=== PATIENT | male | born 1955 | race African-American/Black ===

== ENCOUNTER 2020-11-19 05:43 | Inpatient (IN) | payer OTHER ==
[~2020-11-19] VITALS: Ht 172.7 cm; Wt 67.2 kg
[2020-11-19] MEDS ORDERED: NITROGLYCERIN OINT 1GM/INCH UDPKT TD ONE (06:45)
[2020-11-19] MEDS ORDERED: ALBUTEROL 6.7GM HFA INHALER ORI ONE (06:45)
[2020-11-19] MEDS ORDERED: ASPIRIN 81MG TABLET PO ONE (06:45)
[2020-11-19 07:12] LABS: EOSINOPHILS % 0.7 % (0.0-5.0); HEMATOCRIT. 41.7 % (42.0-52.0); HEMOGLOBIN. 14.1 g/dL (14.0-18.0); LYMPHOCYTES % 35.2 % (20.0-50.0); MEAN CORPUSCULAR HEMOGLOBIN 33.4 pg (28.0-32.0); MEAN CORPUSCULAR VOLUME 99.1 fL (80.0-94.0); MEAN PLATELET VOLUME 7.4 fl (7.4-10.4); NEUTROPHILS % 57.1 % (40.0-76.0); PLATELET 153 x1000/uL (130-400); RED BLOOD CELL COUNT 4.21 mill/uL (4.7-6.1); RED CELL DISTRIBUTION WIDTH 15.7 % (11.6-14.6)
[2020-11-19 07:20] LABS: CHLORIDE 108 mEq/L (98-107)
[2020-11-19 07:23] LABS: ETHANOL BLOOD < 10 mg/dL
[2020-11-19 07:29] LABS: D-DIMER 9.55 mg/L FEU (<0.50); INR 1.4; PROTHROMBIN TIME 14.6 sec (9.6-11.0)
[2020-11-19 13:31] LABS: *AMPHETAMINES SCREEN URINE PRESUMTIVE POSITIVE (NEGATIVE); *BARBITURATES SCREEN URINE NEGATIVE (NEGATIVE); *BENZODIAZEPINES SCREEN URINE NEGATIVE (NEGATIVE); *COCAINE SCREEN URINE NEGATIVE (NEGATIVE)
[2020-11-19 13:32] LABS: CANNABINOID URINE SCREEN NEGATIVE (NEGATIVE); METHADONE URINE SCREEN NEGATIVE (NEGATIVE); OPIATES URINE SCREEN NEGATIVE (NEGATIVE); PHENCYCLIDINE URINE SCREEN NEGATIVE (NEGATIVE)
[2020-11-19] MEDS ORDERED: IOHEXOL-350 100 ML BOTTLE ONE (14:57)
[2020-11-19 23:20] VITALS: BP 115/84
[2020-11-19] MEDS ORDERED: ACETAMINOPHEN 325MG TABLET PO PRN ×2 (23:30)
[2020-11-19] MEDS ORDERED: MAGNESIUM/ALUMINUM HYDROXIDE/SIMETHICONE 30ML UDC PO PRN (23:30)
[2020-11-19] MEDS ORDERED: DIPHENHYDRAMINE 50MG/ML VIAL IV PRN (23:30)
[2020-11-19] MEDS ORDERED: ZOLPIDEM TARTRATE 5MG TABLET PO PRN (23:30)
[2020-11-19] MEDS ORDERED: IPRATROPIUM/ALBUTEROL 0.5-3(2.5)MG/3ML NEB HHN PRN (23:30)
[2020-11-19] MEDS ORDERED: CLONIDINE 0.1MG TABLET PO PRN (23:30)
[2020-11-19] MEDS ORDERED: ONDANSETRON HCL 4MG/2ML INJ IV PRN (23:30)
[2020-11-20] VITALS: BP 115/84
[2020-11-20] MEDS: PANTOPRAZOLE 40MG DR TABLET PO SCH ×2 (00:32→07:06)
[2020-11-20] MEDS: ENOXAPARIN 40MG/0.4ML SYR SUBCUT SCH ×2 (00:33→20:26)
[2020-11-20] MEDS ORDERED: MVI, ADULT NO.1 10 ML, FOLIC ACID 1 MG, THIAMINE HCL 100 MG in SODIUM CHLORIDE 0.9% 1,0... IV NR (01:00)
[2020-11-20 04:00] VITALS: BP 127/98
[2020-11-20] MEDS: SODIUM CHLORIDE 0.9% INJ 3ML FLUSH IVF SCH ×3 (06:00→20:27)
[2020-11-20 07:42] VITALS: BP 114/85
[2020-11-20] MEDS: FUROSEMIDE 40MG/4ML VIAL IVP SCH (08:23)
[2020-11-20 12:00] VITALS: BP 113/82
[2020-11-20] MEDS ORDERED: MAGNESIUM/ALUMINUM HYDROXIDE/SIMETHICONE 30ML UDC PO NR (14:45)
[2020-11-20 16:00] VITALS: BP 124/71
[2020-11-20] MEDS ORDERED: VISCOUS LIDOCAINE 2% 15 ML UDC PO NR (16:00)
[2020-11-20] MEDS ORDERED: KETOROLAC 30MG/ML VIAL IV PRN (17:00)
[2020-11-20 20:00] VITALS: BP 100/75
[2020-11-20] MEDS: FAMOTIDINE 20MG TABLET PO SCH (20:26)
[2020-11-21] VITALS (8 sets, daily range): BP systolic 93–130; BP diastolic 65–95
[2020-11-21] MEDS: SODIUM CHLORIDE 0.9% INJ 3ML FLUSH IVF SCH ×3 (06:52→21:42)
[2020-11-21] MEDS: FUROSEMIDE 40MG/4ML VIAL IVP SCH (08:32)
[2020-11-21] MEDS: FAMOTIDINE 20MG TABLET PO SCH ×2 (08:32→21:42)
[2020-11-21] MEDS ORDERED: HYDROCODONE/ACETAMINOPHEN 10/325MG TABLET PO NR (16:45)
[2020-11-21] MEDS: ENOXAPARIN 40MG/0.4ML SYR SUBCUT SCH (21:41)
== END 2020-11-21 22:00 | disposition short-term general hospital (02) | DRG 917 ==
LOC: ER 05:43 → 5WST 09:50 → EDBEDREQ 10:23 → EDBEDREQTM 10:23 → ENRESERV 22:47
PROVIDERS: ADMIT Internal Medicine; ATTEND Internal Medicine
DX: T40.5X1A Poisoning by cocaine, accidental (unintentional), initial encounter (principal); I21.4 Non-ST elevation (NSTEMI) myocardial infarction; I50.23 Acute on chronic systolic (congestive) heart failure; N17.9 Acute kidney failure, unspecified; J44.9 Chronic obstructive pulmonary disease, unspecified; F17.210 Nicotine dependence, cigarettes, uncomplicated; I11.0 Hypertensive heart disease with heart failure; I16.0 Hypertensive urgency; I45.10 Unspecified right bundle-branch block; F15.10 Other stimulant abuse, uncomplicated; F14.10 Cocaine abuse, uncomplicated; E78.5 Hyperlipidemia, unspecified; R74.01 Elevation of levels of liver transaminase levels; I27.20 Pulmonary hypertension, unspecified; I07.1 Rheumatic tricuspid insufficiency; Z20.822 Contact with and (suspected) exposure to COVID-19; Z71.6 Tobacco abuse counseling; Z71.51 Drug abuse counseling and surveillance of drug abuser; Y92.89 Other specified places as the place of occurrence of the external cause
CPT/HCPCS: 36415; 71045; 71275; 80053; 80305; 80320; 82728; 83605; 83880; 84145; 84484; 85025; 85379; 85384; 86140; 93005; 93306; 94640; 99291; C9803; J1650; J1940; J3411; J3490; J7030; Q9967; U0003; U0005; G0480

== ENCOUNTER 2021-06-26 19:12 | Inpatient (IN) | payer MEDICARE, OTHER ==
[~2021-06-26] VITALS: Ht 175.3 cm; Wt 59.0 kg
[2021-06-26] MEDS ORDERED: SODIUM CHLORIDE 0.9% 1,000 ML IV ONE (20:30)
[2021-06-26 20:37] LABS: BASOPHILS % 0.8 % (0.0-2.0); EOSINOPHILS % 0.5 % (0.0-5.0); HEMATOCRIT. 44.8 % (42.0-52.0); HEMOGLOBIN. 15.1 g/dL (14.0-18.0); LYMPHOCYTES % 27.1 % (20.0-50.0); MEAN CORPUSCULAR HEMOGLOBIN 33.9 pg (28.0-32.0); MEAN CORPUSCULAR VOLUME 100.7 fL (80.0-94.0); MEAN PLATELET VOLUME 7.8 fl (7.4-10.4); MONOCYTES % 12.1 % (2.0-8.0); NEUTROPHILS % 59.5 % (40.0-76.0); PLATELET 172 x1000/uL (130-400); RED BLOOD CELL COUNT 4.45 mill/uL (4.7-6.1); RED CELL DISTRIBUTION WIDTH 16.8 % (11.6-14.6)
[2021-06-26 21:13] LABS: CHLORIDE 109 mEq/L (98-107)
[2021-06-26] MEDS ORDERED: IOHEXOL-350 100 ML BOTTLE ONE (22:46)
[2021-06-27] MEDS ORDERED: HEPARIN BOLUS PRN aPTT 37-44 IV
[2021-06-27] MEDS ORDERED: HEPARIN BOLUS PRN aPTT <36 IV
[2021-06-27] MEDS ORDERED: HEPARIN 80 UNITS/KG BOLUS IV SCH
[2021-06-27] MEDS ORDERED: HEPARIN 25,000 UNITS PREMIX 250 ML IV SCH
[2021-06-27] MEDS ORDERED: ACETAMINOPHEN 325MG TABLET PO PRN ×2 (02:00)
[2021-06-27] MEDS ORDERED: DOCUSATE SODIUM 100MG CAPSULE PO PRN (02:00)
[2021-06-27] MEDS ORDERED: IPRATROPIUM/ALBUTEROL 0.5-3(2.5)MG/3ML NEB HHN PRN (02:00)
[2021-06-27] MEDS ORDERED: CLONIDINE 0.1MG TABLET PO PRN (02:00)
[2021-06-27] MEDS ORDERED: ONDANSETRON HCL 4MG/2ML INJ IV PRN (02:00)
[2021-06-27] MEDS ORDERED: MAGNESIUM/ALUMINUM HYDROXIDE/SIMETHICONE 30ML UDC PO PRN (02:00)
[2021-06-27] MEDS ORDERED: HYDROCODONE/ACETAMINOPHEN 5/325MG TABLET PO PRN (02:15)
[2021-06-27] MEDS ORDERED: NALOXONE HCL 0.4 MG/ML 1ML VIAL IV PRN (02:30)
[2021-06-27] MEDS: PANTOPRAZOLE 40MG DR TABLET PO SCH ×2 (10:06→21:00)
[2021-06-27 11:14] LABS: INR 1.5; PROTHROMBIN TIME 15.6 sec (9.6-11.0)
[2021-06-27 12:20] LABS: PARTIAL THROMBOPLASTIN TIME 105.3 sec (23.4-31.0)
[2021-06-27] MEDS: ENOXAPARIN 80MG/0.8ML SYR SUBCUT SCH (14:45)
[2021-06-27 17:39] LABS: BASOPHILS % 0.6 % (0.0-2.0); EOSINOPHILS % 0.5 % (0.0-5.0); HEMATOCRIT. 45.7 % (42.0-52.0); HEMOGLOBIN. 14.6 g/dL (14.0-18.0); LYMPHOCYTES % 31.5 % (20.0-50.0); MEAN CORPUSCULAR HEMOGLOBIN 32.6 pg (28.0-32.0); MEAN CORPUSCULAR VOLUME 102.5 fL (80.0-94.0); MEAN PLATELET VOLUME 7.5 fl (7.4-10.4); MONOCYTES % 11.5 % (2.0-8.0); NEUTROPHILS % 55.9 % (40.0-76.0); PLATELET 148 x1000/uL (130-400); RED BLOOD CELL COUNT 4.46 mill/uL (4.7-6.1); RED CELL DISTRIBUTION WIDTH 16.5 % (11.6-14.6)
[2021-06-27 17:47] LABS: CHLORIDE 110 mEq/L (98-107)
[2021-06-27] MEDS: ZOLPIDEM TARTRATE 5MG TABLET PO PRN (22:10)
[2021-06-27] MEDS: GUAIFENESIN 200MG/10ML SUGAR FREE UDC PO PRN (22:11)
[2021-06-27 23:13] VITALS: BP 104/83
[2021-06-27] MEDS ORDERED: PNEUMOCOCCAL VACCINE IM ONE (23:30)
[2021-06-28] VITALS: BP 104/83
[2021-06-28] MEDS: ENOXAPARIN 80MG/0.8ML SYR SUBCUT SCH ×2 (02:14→14:14)
[2021-06-28] MEDS: SODIUM CHLORIDE 0.9% INJ 3ML FLUSH IVF SCH ×4 (02:16→21:27)
[2021-06-28 04:00] VITALS: BP 100/70
[2021-06-28] MEDS: PANTOPRAZOLE 40MG DR TABLET PO SCH (06:15)
[2021-06-28 08:00] VITALS: BP 96/70
[2021-06-28] MEDS ORDERED: INFLUENZA VACCINE 05/PF 0.5 ML SYRINGE IM ONE (10:00)
[2021-06-28 12:00] VITALS: BP 117/85
[2021-06-28] MEDS ORDERED: LORAZEPAM 2MG/ML CPJ IV PRN (13:30)
[2021-06-28 16:00] VITALS: BP 118/85
[2021-06-28] MEDS ORDERED: FUROSEMIDE 40MG/4ML VIAL IVP NR (16:45)
[2021-06-28] MEDS ORDERED: LORAZEPAM 1MG TABLET PO PRN (17:00)
[2021-06-28] MEDS: DIGOXIN 500MCG/2ML AMP IV SCH (17:22)
[2021-06-28] MEDS: FUROSEMIDE 40MG/4ML VIAL IVP SCH (18:02)
[2021-06-28 20:00] VITALS: BP 106/69
[2021-06-28] MEDS: ENOXAPARIN 60MG/0.6ML SYR SUBCUT SCH (21:26)
[2021-06-28] MEDS: ZOLPIDEM TARTRATE 5MG TABLET PO PRN (21:26)
[2021-06-28] MEDS: FAMOTIDINE 20MG TABLET PO SCH (21:26)
[2021-06-29] VITALS: BP 96/64
[2021-06-29 04:00] VITALS: BP 105/83
[2021-06-29] MEDS: FUROSEMIDE 40MG/4ML VIAL IVP SCH ×2 (06:14→18:32)
[2021-06-29] MEDS: FAMOTIDINE 20MG TABLET PO SCH ×2 (06:14→21:03)
[2021-06-29] MEDS: SODIUM CHLORIDE 0.9% INJ 3ML FLUSH IVF SCH ×3 (06:14→21:03)
[2021-06-29 08:00] VITALS: BP 92/63
[2021-06-29] MEDS: ENOXAPARIN 60MG/0.6ML SYR SUBCUT SCH ×2 (08:45→21:03)
[2021-06-29] MEDS: SPIRONOLACTONE 25MG TABLET PO SCH (08:45)
[2021-06-29] MEDS ORDERED: FUROSEMIDE 40MG TABLET PO SCH (09:00)
[2021-06-29 12:00] VITALS: BP 88/60
[2021-06-29 16:00] VITALS: BP 104/76
[2021-06-29] MEDS: DIGOXIN 500MCG/2ML AMP IV SCH (18:33)
[2021-06-29 20:00] VITALS: BP 115/85
[2021-06-29] MEDS: ZOLPIDEM TARTRATE 5MG TABLET PO PRN (21:03)
[2021-06-29] MEDS: GUAIFENESIN 200MG/10ML SUGAR FREE UDC PO PRN (21:03)
[2021-06-29] MEDS: IPRATROPIUM/ALBUTEROL 0.5-3(2.5)MG/3ML NEB HHN SCH (21:36)
[2021-06-29 22:17] LABS: CHLORIDE 103 mEq/L (98-107)
[2021-06-30] VITALS (7 sets, daily range): BP systolic 96–116; BP diastolic 60–85
[2021-06-30] MEDS: IPRATROPIUM/ALBUTEROL 0.5-3(2.5)MG/3ML NEB HHN SCH ×4 (02:56→21:10)
[2021-06-30] MEDS: SODIUM CHLORIDE 0.9% INJ 3ML FLUSH IVF SCH ×2 (06:12→20:27)
[2021-06-30] MEDS: FAMOTIDINE 20MG TABLET PO SCH ×2 (06:12→20:26)
[2021-06-30] MEDS: FUROSEMIDE 40MG/4ML VIAL IVP SCH ×3 (06:12→17:58)
[2021-06-30 08:21] LABS: CHLORIDE 101 mEq/L (98-107)
[2021-06-30 08:35] LABS: BASOPHILS % 0.6 % (0.0-2.0); EOSINOPHILS % 0.9 % (0.0-5.0); HEMATOCRIT. 43.6 % (42.0-52.0); HEMOGLOBIN. 14.8 g/dL (14.0-18.0); LYMPHOCYTES % 25.8 % (20.0-50.0); MEAN CORPUSCULAR HEMOGLOBIN 33.8 pg (28.0-32.0); MEAN CORPUSCULAR VOLUME 99.8 fL (80.0-94.0); MEAN PLATELET VOLUME 7.6 fl (7.4-10.4); MONOCYTES % 8.3 % (2.0-8.0); NEUTROPHILS % 64.4 % (40.0-76.0); PLATELET 195 x1000/uL (130-400); RED BLOOD CELL COUNT 4.37 mill/uL (4.7-6.1); RED CELL DISTRIBUTION WIDTH 16.2 % (11.6-14.6)
[2021-06-30] MEDS: ENOXAPARIN 60MG/0.6ML SYR SUBCUT SCH ×2 (09:37→20:26)
[2021-06-30] MEDS: SPIRONOLACTONE 25MG TABLET PO SCH (09:38)
[2021-06-30] MEDS: DIGOXIN 500MCG/2ML AMP IV SCH (17:52)
[2021-06-30] MEDS: GUAIFENESIN 200MG/10ML SUGAR FREE UDC PO PRN (22:50)
[2021-07-01] VITALS: BP 102/62
[2021-07-01] MEDS: IPRATROPIUM/ALBUTEROL 0.5-3(2.5)MG/3ML NEB HHN SCH ×3 (01:10→14:00)
[2021-07-01 04:00] VITALS: BP 114/79
[2021-07-01] MEDS: GUAIFENESIN 200MG/10ML SUGAR FREE UDC PO PRN (05:45)
[2021-07-01] MEDS: SODIUM CHLORIDE 0.9% INJ 3ML FLUSH IVF SCH ×2 (05:45→14:00)
[2021-07-01] MEDS: FUROSEMIDE 40MG/4ML VIAL IVP SCH ×2 (05:45→18:00)
[2021-07-01] MEDS: FAMOTIDINE 20MG TABLET PO SCH (06:19)
[2021-07-01 08:00] VITALS: BP 107/74
[2021-07-01] MEDS: ENOXAPARIN 60MG/0.6ML SYR SUBCUT SCH (09:15)
[2021-07-01] MEDS: SPIRONOLACTONE 25MG TABLET PO SCH (09:15)
[2021-07-01 12:00] VITALS: BP 108/61
[2021-07-01] MEDS ORDERED: APIX5TAB PO (13:58)
[2021-07-01] MEDS: DIGOXIN 500MCG/2ML AMP IV SCH (18:00)
== END 2021-07-01 19:00 | disposition home or self-care (01) | DRG 175 ==
LOC: ER 19:12 → MICUSO 23:45 → EDBEDREQ 06-27 00:09 → EDBEDREQTM 06-27 00:09 → 8WST 06-27 22:02
PROVIDERS: ADMIT Internal Medicine; ATTEND Internal Medicine
DX: I26.09 Other pulmonary embolism with acute cor pulmonale (principal); I21.4 Non-ST elevation (NSTEMI) myocardial infarction; J96.01 Acute respiratory failure with hypoxia; I50.43 Acute on chronic combined systolic (congestive) and diastolic (congestive) heart failure; E44.1 Mild protein-calorie malnutrition; I82.411 Acute embolism and thrombosis of right femoral vein; I82.431 Acute embolism and thrombosis of right popliteal vein; J98.11 Atelectasis; Z68.1 Body mass index [BMI] 19.9 or less, adult; I27.82 Chronic pulmonary embolism; F19.10 Other psychoactive substance abuse, uncomplicated; Z20.822 Contact with and (suspected) exposure to COVID-19; I51.3 Intracardiac thrombosis, not elsewhere classified; F17.210 Nicotine dependence, cigarettes, uncomplicated; I25.2 Old myocardial infarction; I50.82 Biventricular heart failure; Z59.00 Homelessness unspecified; Z79.01 Long term (current) use of anticoagulants; Z86.74 Personal history of sudden cardiac arrest; Z91.14 Patient's other noncompliance with medication regimen; Z91.19 Patient's noncompliance with other medical treatment and regimen; Z71.6 Tobacco abuse counseling; Z79.899 Other long term (current) drug therapy
CPT/HCPCS: 36415; 71045; 71275; 80048; 80053; 83880; 84484; 85025; 87426; 90686; 90732; 93005; 93306; 93970; 94640; 97161; 99285; C1893; J1160; J1644; J1650; J1940; J2060; J7030; Q9967